=== PATIENT | male | born 1970 | race Caucasian/White ===

== ENCOUNTER 2024-12-22 11:48 | Emergency (ER) | payer MEDICAID ==
[~2024-12-22] VITALS: Ht 175.3 cm; Wt 104.0 kg
[2024-12-22 11:51] VITALS: BP 120/82; TEMP 37.1; O2SAT 95
[2024-12-22] MEDS: PREDNISONE 20MG TABLET PO ONE (13:10)
[2024-12-22 13:22] LABS: BASOPHILS % 0.7 % (0.0-2.0); EOSINOPHILS % 0.6 % (0.0-5.0); HEMATOCRIT. 45.9 % (42.0-52.0); HEMOGLOBIN. 15.4 g/dL (14.0-18.0); LYMPHOCYTES % 16.9 % (20.0-50.0); MEAN PLATELET VOLUME 7.2 fl (7.4-10.4); MONOCYTES % 12.1 % (2.0-8.0); NEUTROPHILS % 69.7 % (40.0-76.0); PLATELET 198 x1000/uL (130-400); RED BLOOD CELL COUNT 5.31 mill/uL (4.7-6.1); RED CELL DISTRIBUTION WIDTH 13.2 % (11.6-14.6)
[2024-12-22 13:25] VITALS: PULSE 116; RESP 22
[2024-12-22] MEDS: ALBUTEROL (0.083%) 2.5MG/3ML NEB HHN SCH (13:25)
[2024-12-22] MEDS: IPRATROPIUM BROMIDE (0.02%) 0.5MG/2.5ML NEB HHN SCH (13:25)
[2024-12-22 13:36] VITALS: PULSE 118; RESP 20
[2024-12-22 13:37] LABS: TROPONIN I HIGH SENSITIVITY 14 ng/L (3.0-53)
[2024-12-22 13:46] VITALS: PULSE 119; RESP 18
[2024-12-22 13:55] LABS: CREATININE 1.0 mg/dL (0.6-1.3); UREA NITROGEN BLOOD 10 mg/dL (9-23)
[2024-12-22 13:57] LABS: ASPARTATE AMINOTRANSFERASE 14 IU/L (<34); BILIRUBIN DIRECT 0.4 mg/dL (<=3.0); BILIRUBIN TOTAL 1.2 mg/dL (0.1-1.0); PROTEIN TOTAL 7.6 g/dL (6.0-8.3)
== END 2024-12-22 17:43 | disposition home or self-care (01) ==
LOC: ER 12:02
DX: N28.1 Cyst of kidney, acquired (principal); R10.13 Epigastric pain; R06.02 Shortness of breath; J45.909 Unspecified asthma, uncomplicated
CPT/HCPCS: 80076; 80048; 83690; 85025; 84484; 36415; 71045; 74176; 76705; 94640; 93005; 99285; J7512; Z7610 ×3